=== PATIENT | female | born 1960 | race Caucasian/White ===

== ENCOUNTER 2017-04-12 21:41 | Observation (INO) ==
[2017-04-12 22:21] LABS: Bilirubin,Urine Negative (Negative); Blood,Urine Small (Negative); Clarity,Urine Clear (Clear); Color,Urine Yellow (Yellow); Glucose,Urine (UA) Normal (Normal); Ketones,Urine Negative (Negative); Leukocyte Esterase,Urine Trace (Negative); Nitrite,Urine Negative (Negative); PH,Urine 5.5 pH Units (5.0-8.0); Protein,Urine Negative (Neg-Trace); Urobilinogen,Urine Normal (Normal)
[2017-04-12 22:36] LABS: Bacteria,Urine Few per hpf (None-Few); Squamous Epithelial Cell,Urine Few per lpf (None-Few); WBC,Urine 0-3 per hpf (0-3)
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
[2017-04-12 23:47] LABS: Basophils % 0.6 %; Eosinophils % 1.2 %; Hematocrit 40.7 % (35.3-44.9); Immature Granulocytes % 0.5 % (0-4); Lymphocytes % 16.4 %; Mean Corpuscular HGB Conc 34.4 g/dL (31.6-35.5); Mean Corpuscular Hemoglobin 30.6 pg (28.0-33.3); Mean Corpuscular Volume 89.1 fL (83.0-100.0); Mean Platelet Volume 10.3 fL (9.4-12.4); Monocytes % 6.7 %; Platelet Count 230 K/mcL (140-400); Red Blood Count 4.57 M/mcL (3.82-4.97); Red Cell Distribution Width 12.5 % (11.5-14.5); Segmented Neutrophils % 74.6 %
[2017-04-12 23:48] LABS: Eosinophils # 0.1 K/mcL (0.0-0.6); Lymphocytes # 1.1 K/mcL (0.6-4.6); Monocytes # 0.4 K/mcL (0.0-1.3); Neutrophils # 4.8 K/mcL (1.6-8.9)
[2017-04-13 00:35] LABS: Alanine Aminotransferase 20 Units/L (0-55); Albumin 3.7 g/dL (3.5-5.0); Albumin/Globulin Ratio 1.1 (1.1-2.2); Alkaline Phosphatase 77 Units/L (38-126); Aspartate Amino Transferase 23 Units/L (5-34); BUN/Creatinine Ratio 17 (6-26); Bilirubin,Total 0.4 mg/dL (0.2-1.2); Blood Urea Nitrogen 17 mg/dL (7-20); Calcium 9.3 mg/dL (8.6-10.8); Carbon Dioxide 25 mEq/L (19-29); Chloride 108 mEq/L (98-109); Globulin 3.5 g/dL (2.4-3.5); Glucose 99 mg/dL (70-99); Magnesium 2.2 mg/dL (1.6-2.6); Osmolality,Calculated 298 (280-300); Phosphorous 3.5 mg/dL (2.3-4.7); Potassium 4.3 mEq/L (3.5-4.5); Sodium 143 mEq/L (136-145); Total Protein 7.2 g/dL (6.0-8.3); eGFR For African Americans > 60 (> 60); eGFR For Non-African Americans 57 (> 60)
[2017-04-13] MEDS ORDERED: Ondansetron 4 MG/2 ML VIAL IVP PRN (01:24)
[2017-04-13] MEDS ORDERED: MOM Conc 10 ML UD.LIQ PO PRN (01:24)
[2017-04-13] MEDS ORDERED: Naloxone 0.4 MG/ML INJ IVP PRN (01:24)
[2017-04-13] MEDS ORDERED: *HR* Enoxaparin 40 MG/0.4 ML SYRINGE SQ ONE (01:24)
[2017-04-13] MEDS ORDERED: Acetaminophen 325 MG TABLET PO PRN (01:24)
[2017-04-13 08:33] VITALS: BP 120/71
[2017-04-13] MEDS ORDERED: Aspirin 81 MG TAB.CHEW PO SCH (09:00)
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
--- NOTE | 2017-04-14 16:46 | Electrocardiograph Report ---
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
== END 2017-04-13 11:30 | disposition home or self-care (01) ==
LOC: INPGRE 21:41 → EMEROOGRE 21:41 → INPGRE 04-13 01:56
PROVIDERS: ADMIT Internal Medicine; ATTEND Internal Medicine